=== PATIENT | female | born 1960 | race African-American/Black ===

== ENCOUNTER 2016-08-07 09:35 | Emergency (ER) | payer MEDICAID, OTHER ==
[~2016-08-07] VITALS: Ht 162.6 cm; Wt 76.6 kg
[~2016-08-07 09:35] MED LIST: CYCL1TAB29 PO; ETOD400T PO; FLUT1SPR5 EACH NARE; HYDR-3533 PO; TRIA.1%T TOPICAL
[2016-08-07 09:38] VITALS: BP 135/83; PULSE 88; RESP 15; TEMP 98.2; O2SAT 99
--- NOTE | 2016-08-07 10:07 | PD ---
HPI Chief Complaint: Skin Problem Time Seen by Provider: 10:13 Travel History International Travel<30 days: No Contact w/Intl Traveler<30days: No Traveled to known affect area: No History of Present Illness HPI 55-year-old Afro-[place] female presents with a rash to the left neck which started small area and is gotten bigger over the past 2 weeks. She has been using [id number] medications without any improvement. She denies pain or itch. She denies any other constitutional symptoms. She has no known drug allergies. PFS Past Medical History Migraines: Yes ?: Not Social History Alcohol Use: No Tobacco Use: No Substance Use: No Allergies-Medications (Allergen,Severity, Reaction): Coded Allergies: No Known Allergies (Verified , 08/07/16) Reported Meds & Prescriptions Reported Meds & Active Scripts Active Miconazole Topical (Miconazole) 2 % Pow 1 Applic TOPICAL BID 14 Days Review of Systems Except as stated in HPI: all other systems reviewed are Neg General / Constitutional: No: Fever Eyes: No: Visual changes HENT: No: Headaches Cardiovascular: No: Chest Pain or Discomfort Respiratory: No: Shortness of Breath Gastrointestinal: No: Abdominal Pain Genitourinary: No: Dysuria Musculoskeletal: No: Pain Skin: Positive Lesions, No Rash Neurologic: No: Weakness Psychiatric: No: Depression Endocrine: No: Polydipsia Hematologic/Lymphatic: No: Easy Bruising Physical Exam Narrative GENERAL: Patient appears no acute distress. SKIN: Warm and dry. Patient has a well demarcated raised oblong rash to the underside of the left jaw measuring 4 cm x 3 cm. No other significant findings noted. HEAD: Atraumatic. Normocephalic. EYES: Pupils equal and round. No scleral icterus. No injection or drainage. ENT: No nasal bleeding or discharge. Mucous membranes pink and moist. Pharynx is clear. NECK: Trachea midline. Neck is supple. CARDIOVASCULAR: Regular rate and rhythm. RESPIRATORY: No accessory muscle use. Clear to auscultation. Breath sounds equal bilaterally. MUSCULOSKELETAL: Extremities without clubbing, cyanosis, or edema. No obvious deformities. NEUROLOGICAL: Awake and alert. No obvious cranial nerve deficits. Motor grossly within normal limits. Five out of 5 muscle strength in the arms and legs. Normal speech. PSYCHIATRIC: Appropriate mood and affect; insight and judgment normal. Data Data Last Documented VS Vital Signs Date Time Temp Pulse Resp B/P Pulse Ox O2 Delivery O2 Flow Rate FiO2 08/07/16 09:38 98.2 88 15 135/83 99 MDM Medical Decision Making Medical Screen Exam Complete: Yes Emergency Medical Condition: Yes Differential Diagnosis Tinea corporis. Ringworm. Rash. Narrative Course Patient is medically stable at time of exam. Patient is given miconazole 2% cream to be applied to the area twice daily for the next 2 weeks. Patient should follow with her primary care physician to ensure clearance. Referrals: Primary Care Physician 2 weeks Patient Instructions: General Instructions, Tinea Corporis (ED) Additional Instructions: Patient is given miconazole 2% cream to be applied to the area twice daily for the next 2 weeks. Patient should follow with her primary care physician to ensure clearance. Med/Other Pt SpecificInfo: Prescription(s) given Scripts Miconazole Topical 2 % Pow1 Applic TOPICAL BID 14 Days Ref 0 Prov:Louie Bartlett MD 08/07/16 Disposition: 01 DISCHARGE HOME Condition: Stable Tong Cunha Aug 07, 2016 10:07
[2016-08-07] MEDS ORDERED: MICO1POW14 TOPICAL (10:12)
[2016-08-22] MEDS ORDERED: FLUT50SP EACH NARE (08:34)
[2016-08-22] MEDS ORDERED: HYDR-3583 PO (08:34)
[2016-08-22] MEDS ORDERED: NAPR500T PO (08:34)
== END 2016-08-07 10:49 | disposition home or self-care (01) ==
LOC: NEPB 09:35
DX: B35.4 Tinea corporis (principal)
CPT/HCPCS: 99282

== ENCOUNTER 2017-01-31 08:56 | Emergency (ER) | payer MEDICAID ==
[~2017-01-31] VITALS: Ht 162.6 cm; Wt 75.0 kg
[~2017-01-31 08:56] MED LIST changes: +BACL10TA PO; -CYCL1TAB29 PO; -ETOD400T PO; -FLUT1SPR5 EACH NARE; +FLUT50SP EACH NARE; -HYDR-3533 PO; +HYDR-3583 PO; +HYDR1CAP30 PO; +NAPR500T PO; -TRIA.1%T TOPICAL
[2017-01-31 08:58] VITALS: BP 126/82; PULSE 88; RESP 28; TEMP 98; O2SAT 94
[2017-01-31 09:08] VITALS: BP 139/75; PULSE 85; RESP 22; O2SAT 97
--- NOTE | 2017-01-31 09:14 | PD ---
HPI Chief Complaint: Respiratory Symptoms Time Seen by Provider: 09:06 Travel History International Travel<30 days: No Contact w/Intl Traveler<30days: No Traveled to known affect area: No History of Present Illness HPI The patient is a 56-year-old female who presents to the emergency department for shortness of breath of one week's duration. The patient has a one-week history of shortness of breath, dry nonproductive cough, and wheezing. The patient does have a history of asthma bronchitis, denies any history congestive heart, pulmonary embolism, DVT, or coronary artery disease. The patient denies any recent surgeries, hospitalizations, or prolonged travel. The patient denies any edema to lower extremities. She denies any fever, chills, or sweats. The patient's primary physician is Dr. Mendoza. Symptoms are mild to moderate without any alleviating or exacerbating factors. PFSH Past Medical History Asthma: Yes Diminished Hearing: No Migraines: Yes ?: Not Past Surgical History Surgical History: No Previous Surgery Social History Alcohol Use: No Tobacco Use: Yes (/ ppd) Substance Use: No Allergies-Medications (Allergen,Severity, Reaction): Coded Allergies: No Known Allergies (Verified , 01/01/17) Reported Meds & Prescriptions Reported Meds & Active Scripts Active No Active Prescriptions or Reported Medications Review of Systems Except as stated in HPI: all other systems reviewed are Neg General / Constitutional: No: Fever Cardiovascular: No: Chest Pain or Discomfort, Diaphoresis Respiratory: Positive: Cough, Shortness of Breath, Wheezing, No: Orthopnea Gastrointestinal: No: Nausea, Vomiting, Abdominal Pain Musculoskeletal: No: Edema Neurologic: No: Dizziness Physical Exam Narrative GENERAL: Awake, alert, very pleasant 56-year-old female who appears her stated age and appears in mild respiratory distress. SKIN: Focused skin assessment warm/dry. HEAD: Atraumatic. Normocephalic. EYES: No injection or drainage. ENT: No nasal bleeding or discharge. Mucous membranes pink and moist. NECK: Trachea midline. No JVD. CARDIOVASCULAR: Regular rate and rhythm. No murmur appreciated. Heart rate in the 80s. RESPIRATORY: Mild tachypnea with a respiratory rate of 22. Expiratory wheezes noted. GASTROINTESTINAL: Abdomen soft, non-tender, nondistended. No rebound tenderness. MUSCULOSKELETAL: No obvious deformities. No clubbing. No cyanosis. No edema. Calves are soft bilaterally. NEUROLOGICAL: Awake and alert. No obvious cranial nerve deficits. Motor grossly within normal limits. Normal speech. PSYCHIATRIC: Appropriate mood and affect; insight and judgment normal. Data Data Last Documented VS Vital Signs Date Time Temp Pulse Resp B/P (MAP) Pulse Ox O2 Delivery O2 Flow Rate FiO2 01/31/17 09:20 97 Nasal Cannula 2.00 01/31/17 09:08 85 22 139/75 (96) 01/31/17 08:58 98.0 Orders Orders Electrocardiogram (01/31/17 ) Complete Blood Count With Diff (01/31/17 09:09) Comprehensive Metabolic Panel (01/31/17 09:09) B-Type Natriuretic Peptide (01/31/17 09:09) Magnesium (Mg) (01/31/17 09:09) Ckmb (Isoenzyme) Profile (01/31/17 09:09) Troponin I (01/31/17 09:09) Iv Access Insert/Monitor (01/31/17 09:09) Electrocardiogram (01/31/17 09:09) Ecg Monitoring (01/31/17 09:09) Oximetry (01/31/17 09:09) Oxygen Administration (01/31/17 09:09) Chest, Single Ap (01/31/17 09:09) Sodium Chloride 0.9% Flush (Ns Flush) (01/31/17 09:15) Methylprednisolone So Succ Inj (Solumedr (01/31/17 09:15) Albuterol-Ipratropium Neb (Duoneb Neb) (01/31/17 09:15) Lidocaine Pf 4% Neb (Lidocaine Pf 4% Neb (01/31/17 09:15) CKMB (01/31/17 09:15) CKMB% (01/31/17 09:15) Labs Laboratory Tests Test 01/31/17 09:15 White Blood Count 5.7 TH/MM3 Red Blood Count 4.62 MIL/MM3 Hemoglobin 13.3 GM/DL Hematocrit 41.5 % Mean Corpuscular Volume 89.8 FL Mean Corpuscular Hemoglobin 28.9 PG Mean Corpuscular Hemoglobin Concent 32.1 % Red Cell Distribution Width 14.9 % Platelet Count 278 TH/MM3 Mean Platelet Volume 8.7 FL Neutrophils (%) (Auto) 54.2 % Lymphocytes (%) (Auto) 31.2 % Monocytes (%) (Auto) 9.0 % Eosinophils (%) (Auto) 5.0 % Basophils (%) (Auto) 0.6 % Neutrophils # (Auto) 3.1 TH/MM3 Lymphocytes # (Auto) 1.8 TH/MM3 Monocytes # (Auto) 0.5 TH/MM3 Eosinophils # (Auto) 0.3 TH/MM3 Basophils # (Auto) 0.0 TH/MM3 CBC Comment DIFF FINAL Differential Comment Blood Urea Nitrogen 10 MG/DL Creatinine 0.87 MG/DL Random Glucose 81 MG/DL Total Protein 7.0 GM/DL Albumin 3.3 GM/DL Calcium Level 9.0 MG/DL Magnesium Level 2.0 MG/DL Alkaline Phosphatase 89 U/L Aspartate Amino Transf (AST/SGOT) 14 U/L Alanine Aminotransferase (ALT/SGPT) 23 U/L Total Bilirubin 0.4 MG/DL Sodium Level 138 MEQ/L Potassium Level 3.8 MEQ/L Chloride Level 106 MEQ/L Carbon Dioxide Level 25.4 MEQ/L Anion Gap 7 MEQ/L Estimat Glomerular Filtration Rate 81 ML/MIN Total Creatine Kinase 124 U/L Creatine Kinase MB 2.4 NG/ML Troponin I LESS THAN 0.02 NG/ML B-Type Natriuretic Peptide 35 PG/ML MDM Medical Decision Making Medical Screen Exam Complete: Yes Emergency Medical Condition: Yes Medical Record Reviewed: Yes Interpretation(s) EKG reveals normal sinus rhythm with a rate of 74. Short TN interval 116 ms. Laboratory Tests Test 01/31/17 09:15 White Blood Count 5.7 TH/MM3 Red Blood Count 4.62 MIL/MM3 Hemoglobin 13.3 GM/DL Hematocrit 41.5 % Mean Corpuscular Volume 89.8 FL Mean Corpuscular Hemoglobin 28.9 PG Mean Corpuscular Hemoglobin Concent 32.1 % Red Cell Distribution Width 14.9 % Platelet Count 278 TH/MM3 Mean Platelet Volume 8.7 FL Neutrophils (%) (Auto) 54.2 % Lymphocytes (%) (Auto) 31.2 % Monocytes (%) (Auto) 9.0 % Eosinophils (%) (Auto) 5.0 % Basophils (%) (Auto) 0.6 % Neutrophils # (Auto) 3.1 TH/MM3 Lymphocytes # (Auto) 1.8 TH/MM3 Monocytes # (Auto) 0.5 TH/MM3 Eosinophils # (Auto) 0.3 TH/MM3 Basophils # (Auto) 0.0 TH/MM3 CBC Comment DIFF FINAL Differential Comment Blood Urea Nitrogen 10 MG/DL Creatinine 0.87 MG/DL Random Glucose 81 MG/DL Total Protein 7.0 GM/DL Albumin 3.3 GM/DL Calcium Level 9.0 MG/DL Magnesium Level 2.0 MG/DL Alkaline Phosphatase 89 U/L Aspartate Amino Transf (AST/SGOT) 14 U/L Alanine Aminotransferase (ALT/SGPT) 23 U/L Total Bilirubin 0.4 MG/DL Sodium Level 138 MEQ/L Potassium Level 3.8 MEQ/L Chloride Level 106 MEQ/L Carbon Dioxide Level 25.4 MEQ/L Anion Gap 7 MEQ/L Estimat Glomerular Filtration Rate 81 ML/MIN Total Creatine Kinase 124 U/L Creatine Kinase MB 2.4 NG/ML Troponin I LESS THAN 0.02 NG/ML B-Type Natriuretic Peptide 35 PG/ML Chest x-ray reveals left basilar atelectasis. Scoliosis and degenerative changes noted. Differential Diagnosis Differential diagnosis includes bronchitis, asthma exacerbation, congestive heart failure, pulmonary edema, pleural effusion, pneumonia, acute coronary syndrome, pulmonary embolism. Narrative Course IV was established, labs are drawn and sent, and the patient was placed on cardiac telemetry monitoring and continuous pulse oximetry monitoring. EKG was ordered and interpreted. Chest x-ray was obtained. The patient was administered Solu-Medrol 125 mg intravenously and duo nebs 3 with respiratory lidocaine for cough. Chest x-rays unremarkable except for atelectasis. BNP is normal. Troponin is less than 0.02. The patient has no tachycardia or hypoxia , I doubt pulmonary embolism. The patient was reassessed at 10:50 AM, her symptoms had significantly improved. The patient was advised to decrease tobacco use, to take medications as directed, and the follow-up with her primary physician Dr. Mendoza. Diagnosis Primary Impression: Bronchitis Patient Instructions: General Instructions Additional Instructions: Medications as directed. Follow-up with your primary physician. Stop smoking. Return if symptoms worsen or progress. Med/Other Pt SpecificInfo: Prescription(s) given Scripts Promethazine-Codeine Liq (Promethazine-Codeine Liq) 6.25-10 Mg/5 Ml Syrp 5 ML PO Q6H Y for COUGH AND/OR COLD SYMPTOMS, #240 ML 0 Refills Prov: Sadiq Maldonado MD 01/31/17 Albuterol 18 GM Inh (Ventolin Hfa 18 GM Inh) 90 Mcg/Act Aer 2 PUFF INH Q4H Y for SHORTNESS OF BREATH, #1 INHALER 0 Refills Prov: Sadiq Maldonado MD 01/31/17 Azithromycin (Zithromax Z-David) 250 Mg Dspk 250 MG PO DIRECTED for Infection, #1 DSPK 0 Refills 500 MG (2 tabs) day 1, then 1 tab days 2-5. Prov: Sadiq Maldonado MD 01/31/17 Prednisone (Deltasone) 20 Mg Tab 40 MG PO DAILY for 4 Days, TAB 0 Refills Prov: Sadiq Maldonado MD 01/31/17 Disposition: 01 DISCHARGE HOME Condition: Stable Sadiq Maldonado MD Jan 31, 2017 09:14
[2017-01-31] MEDS ORDERED: methylPREDNISolone SOD SUCC 125 MG/2 ML VIAL IVP ONE (09:15)
[2017-01-31] MEDS ORDERED: SODIUM CHLORIDE 0.9% FLUSH 10 ML FLUSH IVF PRN (09:15)
[2017-01-31] MEDS ORDERED: RESP: LIDOCAINE HCL 4% PF 5 ML NEB NEB ONE (09:15)
[2017-01-31 09:28] LABS: AUTOMATED NEUTROPHIL # 3.1 TH/MM3 (1.8-7.7); BASOPHIL % 0.6 % (0.0-2.0); EOSINOPHIL # 0.3 TH/MM3 (0-0.4); HEMATOCRIT 41.5 % (35.0-46.0); HEMO FLAGS DIFF FINAL; LYMPH % 31.2 % (9.0-44.0); LYMPHOCYTE # 1.8 TH/MM3 (1.0-4.8); MEAN CELL VOLUME 89.8 FL (80.0-100.0); MEAN CORPUSCULAR HEMOGLOBIN 28.9 PG (27.0-34.0); MEAN CORPUSCULAR HGB CONC 32.1 % (32.0-36.0); NEUT % 54.2 % (16.0-70.0); PLATELET COUNT 278 TH/MM3 (150-450); RED BLOOD COUNT 4.62 MIL/MM3 (4.00-5.30); RED CELL DISTRIBUTION WIDTH 14.9 % (11.6-17.2); WHITE BLOOD COUNT 5.7 TH/MM3 (4.0-11.0)
[2017-01-31] MEDS: RESP: ALBUTEROL 2.5 MG/IPRATROPIUM 0.5 MG NEB (SCH) INH ×2 (09:37→09:38)
[2017-01-31 09:51] LABS: ALT (GPT) 23 U/L (10-53); ANION GAP 7 MEQ/L (5-15); AST (GOT) 14 U/L (15-37); BICARBONATE 25.4 MEQ/L (21.0-32.0); BLOOD UREA NITROGEN 10 MG/DL (7-18); CHLORIDE 106 MEQ/L (98-107); GLOMERULAR FILTRATION RATE 81 ML/MIN (>89); POTASSIUM 3.8 MEQ/L (3.5-5.1); SODIUM (NA) 138 MEQ/L (136-145)
[2017-01-31 09:55] LABS: ALKALINE PHOSPHATASE 89 U/L (45-117); CREATINE KINASE 124 U/L (26-192); TOTAL BILIRUBIN ADULT 0.4 MG/DL (0.2-1.0)
[2017-01-31 10:09] LABS: CKMB 2.4 NG/ML (0.5-3.6)
--- NOTE | 2017-01-31 10:12 | RADRPT ---
EXAM DATE/TIME: 01/31/2017 09:15 [facility] COMPARISON: No previous studies available for comparison. INDICATIONS : Short of breath x 1 week. MEDICAL HISTORY : None. SURGICAL HISTORY : None. ENCOUNTER: Initial ACUITY: 1 day PAIN SCORE: 0/10 LOCATION: Bilateral chest FINDINGS: Left basilar atelectasis is noted. The right lung is clear. The pulmonary vascular pattern is mu l. The heart is normal. Mild degenerative changes and scoliosis of the thoracolumbar spine are note d. CONCLUSION: 1. Left basilar atelectasis. 2. Mild degenerative changes and scoliosis of the thoracolumbar spine. Louie Seals MD on January 31, 2017 at 10:04 Board Certified Radiologist. This report was verified electronically.
[2017-01-31] MEDS ORDERED: PRED-503 PO (11:03)
[2017-01-31] MEDS ORDERED: ZITHTAB PO (11:03)
[2017-01-31] MEDS ORDERED: PROM6.256 PO (11:03)
[2017-01-31] MEDS ORDERED: VENTAER INH (11:03)
--- NOTE | 2017-02-01 13:03 | EKG ---
Date Performed: 01/31/2017 Time Performed: 09:14:10 PTAGE: 56 years EKG: Sinus rhythm WITH SHORT IA INTERVAL BORDERLINE ECG INTERPRETATION BASED ON A DEFAULT AGE OF 40 YEARS NO PREVIOUS TRACING DOCTOR: Geraldo Simmons Interpretating Date/Time 02/01/2017 12:54:16
== END 2017-01-31 12:02 | disposition home or self-care (01) ==
LOC: NEPD 08:56
DX: J40 Bronchitis, not specified as acute or chronic (principal); M41.9 Scoliosis, unspecified; J45.909 Unspecified asthma, uncomplicated; F17.200 Nicotine dependence, unspecified, uncomplicated
CPT/HCPCS: 71010; 80053; 82550; 82552; 83735; 83880; 84484; 85025; 93005; 94640; 94664; 96374; 99285; J2930